=== PATIENT | male | born 1970 | race Caucasian/White ===

== ENCOUNTER 2016-12-05 17:51 | Emergency (ER) | payer OTHER ==
--- NOTE | 2016-12-05 18:24 | EDPHY ---
H & P Stated Complaint: HX IBS/DIVERTICULA NOW WITH FEVER LLQ ABD PAIN Time Seen by Provider: 12/05/16 18:12 HPI/ROS: CHIEF COMPLAINT: Left lower quadrant abdominal pain HISTORY OF PRESENT ILLNESS: 46-year-old male with history of psoriasis, on Humira, history of diverticulosis diagnosis via colonoscopy few years ago, complaining of new left lower quadrant abdominal pain since last evening. Tender to palpation. Bowel movements slightly looser than normal. No melena or hematochezia. No pus. Brief episode of Pain radiating to his left testicle last night, now resolved. No urinary complaints. No urethral discharge. No abdominal or genital trauma. No back or flank pain. PRIMARY CARE PROVIDER:Dr. Dmitriy Baldwin. Gastroenterology Dr. Virgil Palm REVIEW OF SYSTEMS: A ten point review of systems was performed and is negative with the exception of the items mentioned in the HPI PAST MEDICAL & SURGICAL HISTORY: psoriasis, on Humira SOCIAL HISTORY: nonsmoker PHYSICAL EXAM (Prior to examination, patient consented to physical exam, hands were washed and my usual and customary physical exam procedures followed) 1) GENERAL: Well-developed, well-nourished, alert and oriented. Appears to be in no acute distress. 2) HEAD: Normocephalic, atraumatic 3) HEENT: Pupils equal, round, reactive to light bilaterally. Sclera anicteric. 4) NECK: Full range of motion, no meningeal signs. 5) LUNGS: Clear auscultation bilaterally, no wheezes, no rhonchi, no retractions. 6) HEART: Regular rate and rhythm, no murmur, no heave, no gallop. 7) ABDOMEN: No guarding, tender to palpation left lower quadrant, no focal tenderness, negative McBurney's, negative Islas's, negative Rovsing's, negative peritoneal sign, 8) MUSCULOSKELETAL: Moving all extremities, no focal areas of tenderness, no obvious trauma. No peripheral edema or discoloration. 9) BACK: No CVA tenderness, no midline vertebral tenderness, no fluctuance, no step-off, no obvious trauma, no visual or palpable abnormality. 10) SKIN: No rash, no petechiae. 11) : Normal male external genitalia, no urethral discharge, bilateral cremasteric reflex present and equal, no high-riding testicle, no tenderness, no visible or palpable abnormality . Bilateral inguinal examination is unremarkable with no mass no hernia appreciated. DIFFERENTIAL DIAGNOSIS: in no particular including but not limited to diverticulitis, diverticular abscess, testicular torsion, hernia - Personal History Current Tetanus/Diphtheria Vaccine: Yes - Medical/Surgical History Hx Asthma: No Hx Chronic Respiratory Disease: No Hx Diabetes: No Hx Cardiac Disease: No Hx Renal Disease: No Hx Cirrhosis: No Hx Alcoholism: No Hx HIV/AIDS: No Hx Splenectomy or Spleen Trauma: No Other PMH: IBS/DIVERTICULA - Social History Smoking Status: Never smoked Constitutional: Initial Vital Signs Temperature (C) 37.1 C 12/05/16 17:58 Heart Rate 86 12/05/16 17:58 Respiratory Rate 17 12/05/16 17:58 Blood Pressure 150/107 H 12/05/16 17:58 O2 Sat (%) 94 12/05/16 17:58 O2 Delivery Mode Room Air Allergies/Adverse Reactions: No Known Allergies Allergy (Verified 12/05/16 17:57) Home Medications: Medication Instructions Recorded Ciprofloxacin [Cipro] 500 mg PO BID #10 tab 12/05/16 Humira 12/05/16 Hydrocodone/APAP 5/325 [Cliff 1 tab PO Q6 PRN #15 tab 12/05/16 5/325 (RX)] metroNIDAZOLE [Flagyl 500 mg (*)] 500 mg PO TID 10 Days 12/05/16 Medical Decision Making ED Course/Re-evaluation: Re-evaluation with serial exams. Discussed case Dr. Carol Corral in ER. He has been given IV Cipro and IV Flagyl in the ER. Discussed his immunocompromised status with history of Humira. This time I do not think that the patient necessitates admission however strict return precautions have been provided and he will need follow-up closely with Dr. Dmitriy Baldwin his primary care provider. Discharged with Cipro and Flagyl - Data Points Laboratory Results: Laboratory Results 12/05/16 18:33 12/05/16 18:33 12/05/16 12/05/16 20:30 18:33 WBC 14.87 H 10^3/uL (3.80-9.50) RBC 5.34 10^6/uL (4.40-6.38) Hgb 15.5 g/dL (13.7-17.5) Hct 46.0 % (40.0-51.0) MCV 86.1 fL (81.5-99.8) MCH 29.0 pg (27.9-34.1) MCHC 33.7 g/dL (32.4-36.7) RDW 12.4 % (11.5-15.2) Plt Count 255 10^3/uL (150-400) MPV 9.7 fL (8.7-11.7) Neut % (Auto) 79.5 H % (39.3-74.2) Lymph % (Auto) 10.1 L % (15.0-45.0) [place] % (Auto) 8.8 % (4.5-13.0) Eos % (Auto) 0.7 % (0.6-7.6) Baso % (Auto) 0.4 % (0.3-1.7) Nucleat RBC Rel Count 0.0 % (0.0-0.2) Absolute Neuts (auto) 11.82 H 10^3/uL (1.70-6.50) Absolute Lymphs (auto) 1.50 10^3/uL (1.00-3.00) Absolute Monos (auto) 1.31 H 10^3/uL (0.30-0.80) Absolute Eos (auto) 0.11 10^3/uL (0.03-0.40) Absolute Basos (auto) 0.06 10^3/uL (0.02-0.10) Absolute Nucleated RBC 0.00 10^3/uL (0-0.01) Immature Gran % 0.5 % (0.0-1.1) Immature Gran # 0.07 10^3/uL (0.00-0.10) Sodium 137 mEq/L (134-144) Potassium 4.1 mEq/L (3.5-5.2) Chloride 100 mEq/L (97-110) Carbon Dioxide 25 mEq/l (22-31) Anion Gap 12 mEq/L (8-16) BUN 8 mg/dL (7-23) Creatinine 0.8 mg/dL (0.7-1.3) Estimated GFR > 60 Glucose 98 mg/dL (70-100) Calcium 9.3 mg/dL (8.5-10.4) Total Bilirubin 1.0 mg/dL (0.1-1.4) Conjugated Bilirubin 0.2 mg/dL (0.0-0.5) Unconjugated Bilirubin 0.8 mg/dL (0.0-1.1) AST 45 IU/L (17-59) ALT 70 IU/L (21-72) Alkaline Phosphatase 70 IU/L (38-126) Total Protein 7.2 g/dL (6.3-8.2) Albumin 4.0 g/dL (3.5-5.0) Lipase 107.0 IU/L (23-300) Urine Color PALE YELLOW Urine Appearance CLEAR Urine pH 7.0 (5.0-7.5) Ur Specific [place] 1.023 (1.002-1.030) Urine Protein NEGATIVE (NEGATIVE) Urine Ketones NEGATIVE (NEGATIVE) Urine Blood NEGATIVE (NEGATIVE) Urine Nitrate NEGATIVE (NEGATIVE) Urine Bilirubin NEGATIVE (NEGATIVE) Urine Urobilinogen NEGATIVE EU (0.2-1.0) Ur Leukocyte Esterase NEGATIVE (NEGATIVE) Urine RBC NONE SEEN /hpf (0-3) Urine WBC 1-3 /hpf (0-3) Ur Epithelial Cells NONE SEEN /lpf (NONE-1+) Urine Glucose NEGATIVE (NEGATIVE) Medications Given: Discontinued Medications Morphine Sulfate (Morphine) 4 mg IVP EDNOW ONE Stop: 12/05/16 18:22 Last Admin: 12/05/16 18:55 Dose: Not Given Departure - Departure Disposition: Home, Routine, Self-Care Clinical Impression: Diverticulitis Qualifiers: Diverticulitis site: large intestine Diverticulitis bleeding: without bleeding Diverticulitis complication: without perforation or abscess Qualifier Code: ( K57.32) Diverticulitis of large intestine without perforation or abscess without bleeding Condition: Good Instructions: Diverticulitis (ED) Additional Instructions: Seek immediate medical attention if you develop new or worsening symptoms, if you develop fevers, chills, inability to tolerate oral intake or any other symptoms that concerns you. Referrals: DMITRIY BALDWIN [Primary Care Provider] - 1 day without fail Prescriptions: Ciprofloxacin [Cipro] 500 mg PO BID #10 tab metroNIDAZOLE [Flagyl 500 mg (*)] 500 mg PO TID 10 Days Hydrocodone/APAP 5/325 [Cliff 5/325 (RX)] 1 tab PO Q6 PRN #15 tab PRN Reason: Pain, Severe
[2016-12-05 18:47] LABS: % IMMATURE GRANULYOCYTES 0.5 % (0.0-1.1); ABSOLUTE IMMATURE GRANULOCYTES 0.07 10^3/uL (0.00-0.10); ADD DIFF? NO; ADD MORPH? NO; ADD SCAN? NO; ATYPICAL LYMPHOCYTE FLAG 0 (0-99); FRAGMENT RBC FLAG 0 (0-99); HEMOGLOBIN 15.5 g/dL (13.7-17.5); LEFT SHIFT FLG 0 (0-99); LIPEMIA HEMOLYSIS FLAG 80 (0-99); MEAN CELL HEMOGLOBIN CONCENTR. 33.7 g/dL (32.4-36.7); MEAN CELL VOLUME 86.1 fL (81.5-99.8); MEAN PLATELET VOLUME 9.7 fL (8.7-11.7); PLATELET CLUMPS FLAG 0 (0-99); PLATELET COUNT 255 10^3/uL (150-400); RED BLOOD CELL COUNT 5.34 10^6/uL (4.40-6.38); RED CELL DISTRIBUTION WIDTH 12.4 % (11.5-15.2)
[2016-12-05 19:02] LABS: ALANINE AMINOTRANSFERASE 70 IU/L (21-72); ALKALINE PHOSPHATASE 70 IU/L (38-126); ANION GAP 12 mEq/L (8-16); ASPARTATE AMINOTRANSFERASE 45 IU/L (17-59); BILIRUBIN-CONJUGATED 0.2 mg/dL (0.0-0.5); BILIRUBIN-UNCONJUGATED 0.8 mg/dL (0.0-1.1); CALCIUM 9.3 mg/dL (8.5-10.4); CARBON DIOXIDE 25 mEq/l (22-31); CHLORIDE 100 mEq/L (97-110); CREATININE 0.8 mg/dL (0.7-1.3); GLOMERULAR FILTRATION RATE > 60; GLUCOSE 98 mg/dL (70-100); POTASSIUM 4.1 mEq/L (3.5-5.2); SODIUM 137 mEq/L (134-144); TOTAL PROTEIN 7.2 g/dL (6.3-8.2)
[2016-12-05] MEDS ORDERED: IOPAMIDOL (ISOVUE-300) 100 ML BTL IV ONE (20:06)
[2016-12-05 20:53] LABS: COLOR PALE YELLOW; LEUKOCYTE ESTERASE,URINE NEGATIVE (NEGATIVE); NITRITE,URINE NEGATIVE (NEGATIVE)
[2016-12-05 21:01] LABS: RBC,URINE NONE SEEN /hpf (0-3)
[2016-12-05] MEDS ORDERED: CIPROFLOXACIN 400 MG/DEXTROSE 200 ML IV ONE (21:06)
--- NOTE | 2016-12-05 21:18 | CT ---
CT Scan of the Abdomen and Pelvis (With Contrast) December 05, 2016 at 2016 hours. Indication: Abdominal pain. History of diverticulitis. Technique: 98 mL of Isovue-300 were given intravenously by machine power injection. Multidetector h elical CT imaging was performed from the diaphragm to the symphysis pubis. Dose reduction techniques were utilized. COMPARISON: None. Findings Abdomen: The lung bases are clear. Minimal scarring is seen inferiorly in the lingula. Decreased a ttenuation of the liver, with no focal lesion. The gallbladder is unremarkable. The pancreas is unr emarkable. Both adrenal glands are normal in size and appearance. A renal cortical cyst is is seen midpole of the right kidney, measuring 1.3 cm. No evidence for hydronephrosis. No significant abdom inal lymphadenopathy. There is a fluid collection right side of the heart, probably representing a p ericardial cyst, measuring 5.4 cm anterior to posterior x 2 cm in width. Pelvis: Diverticulosis is seen in the sigmoid colon. There is wall thickening and mesenteric strand ing at the sigmoid colon at the left lower quadrant indicating diverticulitis. No evidence for free intraperitoneal air or abscess. No evidence for a small bowel obstruction. No evidence for a bladde r calculus. Impressions 1. Diverticulitis sigmoid colon in the left lower quadrant. 2. Fatty infiltration of the liver. 3. Probable right pericardial cyst. 4. Right renal cortical cyst. Results discussed with Poncho Mckeon PA-C.
[2016-12-05] MEDS ORDERED: ACETAMINOPHEN 325 MG TAB PO ONE (21:37)
[2016-12-05 22:33] VITALS: RESP 14; TEMP 97.9
[2016-12-05 23:12] VITALS: BP 122/78; PULSE 80; O2SAT 94
== END 2016-12-05 23:09 | disposition home or self-care (01) ==
DX: K57.32 Diverticulitis of large intestine without perforation or abscess without bleeding (principal)
CPT/HCPCS: 96365; J0744; Q9967

== ENCOUNTER → 2019-04-20 | Outpatient (CLI) | payer OTHER | LOC: BMCIMAGING 13:30 ==